=== PATIENT | male | born 1965 | race Caucasian/White ===

== ENCOUNTER → 2019-02-12 | Outpatient (CLI) | payer BC ==
--- NOTE | 2019-02-12 13:53 | CT ---
EXAMINATION TYPE: CT urogram wo/w con DATE OF EXAM: 02/12/2019 COMPARISON: None HISTORY: microscopic hematuria CT DLP: 2682 mGycm, Automated Exposure Control for Dose Reduction was Utilized. CONTRAST: CT scan of the abdomen and pelvis is performed with oral and without and with IV Contrast, patient in jected with 100 mL of Isovue 300. Three-D reformatted images of the collecting systems and urinary bl adder were performed at a separate workstation and submitted for interpretation. FINDINGS: LUNG BASES: No significant abnormality is appreciated. LIVER/GB: Hepatic parenchyma is diffusely hypoattenuated in comparison to that of the spleen, most commonly seen in hepatic steatosis. This finding limits evaluation for hepatic masses. No gross evide nce of hepatic mass is seen. No intrahepatic biliary ductal dilatation. No cholelithiasis. PANCREAS: No significant abnormality is seen. SPLEEN: No significant abnormality is seen. ADRENALS: No significant abnormality is seen. KIDNEYS: The unenhanced images demonstrate no evidence of nephrolithiasis. There is an exophytic 1 cm medial left upper pole renal cyst and too small to accurately characterize exophytic anterior 6 mm r ight renal lesion that is also likely sales representative canvas products of a cyst. No hydronephrosis of either kidney. N o filling defect within the urinary bladder is seen although only partially filled with contrast. No uroepithelial thickening. No ureteral obstruction or mass is evident. BOWEL: Scattered colonic diverticula are present without pericolonic fat stranding. Moderate amount r etained colonic debris is noted. No dilated large or small bowel. PROSTATE/SEMINAL VESICLES: No gross abnormality seen. Left inguinal ring is fat filled and patulous. LYMPH NODES: No greater than 1cm abdominal or pelvic lymph nodes are appreciated. OSSEOUS STRUCTURES: Osseous cystic change of the left femoral head is likely degenerative. Minimal de generative change of the spine. IMPRESSION: No nephrolithiasis, hydronephrosis, suspicious solid renal mass, uroepithelial thickening, ureteral s tricture, ureteral filling defect, or urinary bladder filling defect. There is a simple appearing damien ign left renal cyst in right renal lesion that is too small to accurately characterize but suspected to represent an additional benign cyst.
== END | disposition home or self-care (01) ==
LOC: RADCTMAIN 08:06
PROVIDERS: ATTEND Urology
DX: N28.1 Cyst of kidney, acquired (principal); N28.9 Disorder of kidney and ureter, unspecified; Z88.8 Allergy status to other drugs, medicaments and biological substances
CPT/HCPCS: 74178; 74400; Q9967

== ENCOUNTER 2019-09-30 21:25 | Observation (INO) | payer BC ==
--- NOTE | 2019-09-30 22:07 | ED ---
Arrhythmia/Palpitations HPI - General Chief Complaint: Arrhythmia/Palpitations Stated Complaint: Palpitations/CP Time Seen by Provider: 09/30/19 21:37 Source: patient Mode of arrival: ambulatory Limitations: no limitations - History of Present Illness Initial Comments: Patient is a 54-year-old male with history of type 2 diabetes is presenting to emergency Department with chief complaint of chest pain. Patient reports he has been having chest politicians for about 10 days when he feels his heart is "fluttering". Patient reports about a week ago he was evaluated by Dr. Fisher and had an EKG performed. Patient reports he was also placed on a Holter monitor for 24 hours. Patient reports over the same. He has been dealing with hypotension and Dr. Fisher head him avoid any stimulants. Patient is not currently on any antihypertensive medication. Patient reports occurred chest pain began about 2 hours prior to ED arrival. Patient reports a midsternal pain that radiated to the left shoulder and the jaw. Currently patient denies any chest pain but does report chest heaviness that seems to be exacerbated with full aspiration. Patient does report mild shortness of breath. Patient reports he is a social smoker. Patient does have family history of early cardiac disease. Patient does report lightheadedness. Patient did report diaphoresis at the onset of his chest pain but has not resolved. - Related Data Home Medications Medication Instructions Recorded Confirmed Atorvastatin [Lipitor] 20 mg PO HS 03/17/15 09/30/19 Aspirin EC [Ecotrin Low Dose] 162 mg PO ONCE PRN 09/30/19 09/30/19 Relive Vitmain Powder 1 scoop PO DAILY 09/30/19 09/30/19 Zolpidem Tartrate [Ambien Cr] 6.25 mg PO HS 09/30/19 09/30/19 Allergies Allergy/AdvReac Type Severity Reaction Status Date / Time hylan G-F 20 [From [employer]] AdvReac joint pain Verified 09/30/19 22:27 and swelling Review of Systems ROS Statement: Those systems with pertinent positive or pertinent negative responses have been documented in the HPI. ROS Other: All systems not noted in ROS Statement are negative. Past Medical History Past Medical History: Cancer, Hearing Disorder / Deafness, Hyperlipidemia, Hypertension, Osteoarthritis (OA), Pneumonia, Skin Disorder, Sleep Apnea/CPAP/BI PAP Additional Past Medical History / Comment(s): HTN RESOLVED WITH WT LOSS, HX OF SLEEP APNEA-STATES NO PROBLEM NOW, HX OF SQUAMOUS CELL CA EAR & PRECANCEROUS LESION ON FACE., ARTHRITIS IN KNEES, HIPS AND HANDS., BACK PAIN (SEE'S CHIROPRACTOR PRN). , RIGHT INGUINAL HERNIA. , STATES PAIN AT LEFT GROIN (HX OF LEFT INGUINAL HERNIA SURGERY), TINNITUS, 40% HEARING LOSS LEFT EAR. History of Any Multi-Drug Resistant Organisms: None Reported Past Surgical History: Hernia Repair, Orthopedic Surgery Additional Past Surgical History / Comment(s): RT KNEE ARTHROSCOPY,FATTY TUMOR REMOVED ABDOMINAL WALL, LEFT INGUINAL HERNIA REPAIR(1988). Past Anesthesia/Blood Transfusion Reactions: No Reported Reaction Past Psychological History: No Psychological Hx Reported Smoking Status: Former smoker Past Alcohol Use History: Occasional Past Drug Use History: None Reported - Past Family History Father Family Medical History: Diabetes Mellitus, Hyperlipidemia, Hypertension Mother Family Medical History: Cancer, CVA/TIA, Diabetes Mellitus General Exam Limitations: no limitations General appearance: alert, in no apparent distress, obese Head exam: Present: atraumatic, normocephalic, normal inspection Eye exam: Present: normal appearance, PERRL, EOMI Pupils: Present: normal accommodation ENT exam: Present: normal exam, mucous membranes moist Neck exam: Present: normal inspection Respiratory exam: Present: normal lung sounds bilaterally Cardiovascular Exam: Present: regular rate, normal rhythm, normal heart sounds Extremities exam: Present: normal inspection, full ROM Back exam: Present: normal inspection, full ROM Neurological exam: Present: alert, oriented X3 Psychiatric exam: Present: normal affect, normal mood Skin exam: Present: warm, intact, normal color Course Vital Signs 09/30/19 09/30/19 21:27 23:45 Temperature 98.1 F Pulse Rate 68 57 L Respiratory 16 18 Rate Blood Pressure 150/90 106/68 O2 Sat by Pulse 99 98 Oximetry EKG Findings - EKG Comments: EKG Findings:: Sinus bradycardia, no ST changes. Matriculate 55, AR interval 144, QRS duration 100, QT/QTC 404/296. Medical Decision Making - Medical Decision Making Patient is a 54-year-old male with a history of type 2 diabetes presenting to emergency Department with a chief complaint of chest pain. The pain occurred 2 hours prior to ED arrival with radiation to the left side, however patient currently denies any pain in only is complaining of some chest heaviness that appears to be exacerbated with inspiration. Chest x-ray is unremarkable. EKG shows sinus bradycardia. Patient alert he took 325 of aspirin today so none will be given currently. Initial troponins are negative. Rest of laboratory work is unremarkable. Patient has a heart score of 4. Patient will be admitted for serial troponins. Case discussed with physician. Admitting physician is . Cardiology consulted. - Lab Data Result diagrams: 09/30/19 22:10 09/30/19 22:10 Lab Results 09/30/19 09/30/19 09/30/19 Range/Units 22:10 22:10 22:10 WBC 9.9 (3.8-10.6) k/uL RBC 5.04 (4.30-5.90) m/uL Hgb 15.1 (13.0-17.5) gm/dL Hct 42.6 (39.0-53.0) % MCV 84.5 (80.0-100.0) fL MCH 30.0 (25.0-35.0) pg MCHC 35.5 (31.0-37.0) g/dL RDW 12.7 (11.5-15.5) % Plt Count 171 (150-450) k/uL Neutrophils % 61 % Lymphocytes % 33 % Monocytes % 5 % Eosinophils % 0 % Basophils % 0 % Neutrophils # 6.1 (1.3-7.7) k/uL Lymphocytes # 3.3 (1.0-4.8) k/uL Monocytes # 0.5 (0-1.0) k/uL Eosinophils # 0.0 (0-0.7) k/uL Basophils # 0.0 (0-0.2) k/uL PT 10.5 (9.0-12.0) sec INR 1.0 (<1.2) APTT 22.6 (22.0-30.0) sec Sodium 136 L (137-145) mmol/L Potassium 3.7 (3.5-5.1) mmol/L Chloride 102 (98-107) mmol/L Carbon Dioxide 23 (22-30) mmol/L Anion Gap 11 mmol/L BUN 21 H (9-20) mg/dL Creatinine 0.90 (0.66-1.25) mg/dL Est GFR (CKD-EPI)AfAm >90 (>60 ml/min/1.73 sqM) Est GFR (CKD-EPI)NonAf >90 (>60 ml/min/1.73 sqM) Glucose 109 H (74-99) mg/dL Calcium 9.8 (8.4-10.2) mg/dL Magnesium 1.9 (1.6-2.3) mg/dL Total Bilirubin 0.9 (0.2-1.3) mg/dL AST 31 (17-59) U/L ALT 25 (21-72) U/L Alkaline Phosphatase 65 (38-126) U/L Troponin I (0.000-0.034) ng/mL Total Protein 7.3 (6.3-8.2) g/dL Albumin 4.6 (3.5-5.0) g/dL 09/30/19 Range/Units 22:10 WBC (3.8-10.6) k/uL RBC (4.30-5.90) m/uL Hgb (13.0-17.5) gm/dL Hct (39.0-53.0) % MCV (80.0-100.0) fL MCH (25.0-35.0) pg MCHC (31.0-37.0) g/dL RDW (11.5-15.5) % Plt Count (150-450) k/uL Neutrophils % % Lymphocytes % % Monocytes % % Eosinophils % % Basophils % % Neutrophils # (1.3-7.7) k/uL Lymphocytes # (1.0-4.8) k/uL Monocytes # (0-1.0) k/uL Eosinophils # (0-0.7) k/uL Basophils # (0-0.2) k/uL PT (9.0-12.0) sec INR (<1.2) APTT (22.0-30.0) sec Sodium (137-145) mmol/L Potassium (3.5-5.1) mmol/L Chloride (98-107) mmol/L Carbon Dioxide (22-30) mmol/L Anion Gap mmol/L BUN (9-20) mg/dL Creatinine (0.66-1.25) mg/dL Est GFR (CKD-EPI)AfAm (>60 ml/min/1.73 sqM) Est GFR (CKD-EPI)NonAf (>60 ml/min/1.73 sqM) Glucose (74-99) mg/dL Calcium (8.4-10.2) mg/dL Magnesium (1.6-2.3) mg/dL Total Bilirubin (0.2-1.3) mg/dL AST (17-59) U/L ALT (21-72) U/L Alkaline Phosphatase (38-126) U/L Troponin I <0.012 (0.000-0.034) ng/mL Total Protein (6.3-8.2) g/dL Albumin (3.5-5.0) g/dL Disposition Clinical Impression: Chest pain Disposition: ADMITTED IP TO THIS HOSP Condition: Stable Instructions (If sedation given, give patient instructions): Heart Palpitations (ED) Additional Instructions: Patient will be admitted Is patient prescribed a controlled substance at d/c from ED?: No Referrals: Truman Anthony DO [Primary Care Provider] - 1-2 days Time of Disposition: 23:47
[2019-09-30 22:22] LABS: Basophils % (A) 0 %; Eosinophils % (A) 0 %; HCT 42.6 % (39.0-53.0); HGB 15.1 gm/dL (13.0-17.5); Lymphocytes # (A) 3.3 k/uL (1.0-4.8); Lymphocytes % (A) 33 %; MCHC 35.5 g/dL (31.0-37.0); MCV 84.5 fL (80.0-100.0); Mean Platelet Volume 5.9; Monocytes # (A) 0.5 k/uL (0-1.0); Monocytes % (A) 5 %; Neutrophils # (A) 6.1 k/uL (1.3-7.7); Neutrophils % (A) 61 %; Platelet Count 171 k/uL (150-450); RBC 5.04 m/uL (4.30-5.90); RDW 12.7 % (11.5-15.5); WBC 9.9 k/uL (3.8-10.6)
[2019-09-30 22:30] LABS: Partial Thromboplastin Time 22.6 sec (22.0-30.0); Prothrombin Time 10.5 sec (9.0-12.0)
[2019-09-30 22:41] LABS: ALT 25 U/L (21-72); AST 31 U/L (17-59); African American GFR (CKD) >90 (>60 ml/min/1.73 sqM); Albumin 4.6 g/dL (3.5-5.0); Alkaline Phosphatase 65 U/L (38-126); Anion Gap 11 mmol/L; Blood Urea Nitrogen 21 mg/dL (9-20); Calcium 9.8 mg/dL (8.4-10.2); Carbon Dioxide 23 mmol/L (22-30); Chloride 102 mmol/L (98-107); Glucose 109 mg/dL (74-99); Magnesium 1.9 mg/dL (1.6-2.3); Non-African American GFR(CKD) >90 (>60 ml/min/1.73 sqM); Potassium 3.7 mmol/L (3.5-5.1); Sodium 136 mmol/L (137-145); Total Bilirubin 0.9 mg/dL (0.2-1.3); Total Protein 7.3 g/dL (6.3-8.2)
--- NOTE | 2019-09-30 22:43 | XR ---
EXAMINATION TYPE: XR chest 2V DATE OF EXAM: 09/30/2019 COMPARISON: NONE HISTORY: Chest pain TECHNIQUE: Frontal and lateral views of the chest are obtained. FINDINGS: Heart and mediastinum are normal. Lungs are clear. Diaphragm is normal. Bony thorax appear s normal. IMPRESSION: Normal chest
[2019-09-30] MEDS ORDERED: ALPRAZolam 0.25 MG TAB PO PRN (23:41)
[2019-09-30] MEDS ORDERED: NITROGLYCERIN SL TABS 0.4 MG TAB SUBLINGUAL PRN (23:41)
[2019-10-01] MEDS ORDERED: ZOLPIDEM 5 MG TAB PO PRN
[2019-10-01] MEDS ORDERED: TEMAZEPAM 15 MG CAP PO PRN (00:38)
[2019-10-01] MEDS ORDERED: HYDROcodone/APAP 5-325MG 1 EACH TAB PO PRN (00:38)
[2019-10-01] MEDS ORDERED: HYDROmorphone 0.5 MG/0.5 ML SYRINGE IVP PRN (01:00)
[2019-10-01] MEDS ORDERED: ZOLPIDEM 5 MG TAB PO SCH (01:00)
[2019-10-01 03:55] LABS: Cholesterol 156 mg/dL (<200); HDL Cholesterol 41 mg/dL (40-60); LDL Cholesterol,Calculated 94 mg/dL (0-99); Triglycerides 103 mg/dL (<150)
[2019-10-01 05:46] VITALS: BMI 33.9
[2019-10-01] MEDS ORDERED: PANTOPRAZOLE 40 MG TABLET PO SCH (07:30)
[2019-10-01] MEDS ORDERED: DOBUTamine DRIP for NUC MED 500 MG in DEXTROSE/WATER 1 250ML.BAG IV ONE (08:11)
[2019-10-01] MEDS ORDERED: ASPIRIN 325 MG TAB PO SCH (09:00)
[2019-10-01 10:22] VITALS: RESP 16
--- NOTE | 2019-10-01 11:38 | CONS ---
CONSULTATION . CHIEF COMPLAINT: Chest pain. HISTORY OF PRESENT ILLNESS: Mr. Wiggins is a 54-year-old gentleman with history of dyslipidemia and prior episodes of palpitations, atypical chest discomfort and elevated blood pressures, comes to hospital complaining of palpitations. He checked his blood pressure at home and over a period of 1 week gradually the blood pressure had gone up. Due to this, he came in and is admitted to hospital. His EKG does not reveal acute ischemic changes and cardiac enzymes have been negative. At the time of my evaluation, he is pain free, hemodynamically stable and the blood pressures have been normal. An the patient has had episodes of anxiety and elevated blood pressures and had been evaluated in our office. The patient had a negative Lexiscan in January of 2019. PAST MEDICAL HISTORY: Significant for dyslipidemia. CURRENT MEDICATIONS: Include aspirin, Lipitor and Ambien. ALLERGIES: There are no known drug allergies. FAMILY HISTORY: Negative for premature coronary artery disease. SOCIAL HISTORY: Negative for current smoking, EtOH abuse, or drug abuse. REVIEW OF SYSTEMS: HEENT is unremarkable. Cardiac as described above. Respiratory as described above. GI negative. GENITOURINARY negative. ALLERGY none. SKIN negative. MUSCULOSKELETAL significant for arthritis. PSYCHOSOCIAL negative. ENDOCRINE negative. DERM negative. CONSTITUTIONAL negative. ONCOLOGICAL negative. Rest of the system review is not relevant. PHYSICAL EXAM: He is comfortable at rest. Vital signs are stable. There is no jugular venous distention. Carotid upstroke is normal. There is no bruit. Chest exam reveals good air entry bilaterally. Heart exam reveals first and second heart sounds. No gallop. No murmur. No rub. Abdomen is soft, nontender. Exam of extremities did not reveal any edema. Peripheral pulses are felt. 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 LABS: Show a hemoglobin of 15.1, platelet count is 170. Potassium is 3.7 creatinine is 0.9. Two sets of troponins are negative. LDL cholesterol is 94. ASSESSMENT: 1. Palpitations. 2. Precordial chest pain, atypical. 3. Hypertension, probably related to anxiety. PLAN: I will obtain a dobutamine echo on him and if this is negative, he can be discharged home and outpatient followup arranged with Dr. Fisher, his primary house worker general. MMODL / IJN: [id number] /
[2019-10-01 12:38] VITALS: TEMP 98.2
--- NOTE | 2019-10-01 15:09 | ECHOS ---
STRESS ECHOCARDIOGRAM DATE OF SERVICE: Dobutamine stress echo. INDICATIONS: Chest pain. MEDICATIONS: BASELINE HEART RATE: 48 BASELINE BLOOD PRESSURE: 113/70 MAXIMUM HEART RATE: 141 MAXIMUM BLOOD PRESSURE: 195/63 85% MPHR: 139 100% MPHR: 164 METS: MAXIMUM STAGE REACHED: 5 TOTAL EXERCISE TIME: 12:30 RESULTS: Baseline EKG revealed normal sinus rhythm without significant ST changes. With dobutamine administration as per protocol, heart rate went up to 141 beats per minute which is 85% of predicted maximal. Patient did not have any significant symptoms. There was no angina or arrhythmia. By EKG criteria, this is unremarkable dobutamine stress test. Baseline echo images revealed normal wall motion, wall thickening of all segments. With dobutamine administration, there was progressive increase in contractility of all segments suggesting that there is no evidence of stress-induced ischemia on this study. This is a normal dobutamine stress echocardiogram. FINAL IMPRESSION: 1. Normal dobutamine stress test by EKG criteria. 2. Normal dobutamine stress echocardiogram. MMODL / IJN: [id number] /
[2019-10-01 16:28] VITALS: BP 112/75; PULSE 55
--- NOTE | 2019-10-01 16:57 | HP ---
HISTORY AND PHYSICAL This is a combination history and physical and discharge summary. HISTORY AND PHYSICAL/DISCHARGE SUMMARY: DATE OF SERVICE: 10/01/2019 CHIEF COMPLAINT: Chest pain. HISTORY OF PRESENT ILLNESS: This 54-year-old gentleman the past medical history of hypertension, hyperlipidemia, history of DJD, history of pneumonia, history of hernia repair being followed by Dr. Truman Anthony in the outpatient setting, was complaining of chest pain which is felt in the anterior part of the chest and radiating to the left arm and left shoulder. EKG did not show any acute changes. Cardiac enzymes are negative. The patient had negative stress test in January 2019. The patient was evaluated by Cardiology and the patient underwent a dobutamine stress echo which was negative and the patient was recommended to be discharged and follow up in the outpatient setting with Cardiology and primary physician. The sodium is 136. There is no history of radiation of pain elsewhere, no associated symptoms, aggravating or relieving factors at this time. PAST MEDICAL HISTORY: History of hearing defects, history of hypertension, hyperlipidemia, history of DJD, history of hernia repair. MEDICATIONS: Home medications are: 1. Ambien 6.25 mg q.h.s. 2. Vitamin powder 1 scoop daily. 3. Lipitor 20 mg q.h.s. 4. Ecotrin 160 mg p.o. once p.r.n. 5. Protonix 40 mg with breakfast. ALLERGIES: HYLAN SYNVISC. FAMILY HISTORY: History of CAD, diabetes, hypertension, hyperlipidemia. SOCIAL HISTORY: Previous history of smoking. Occasional alcohol intake. REVIEW OF SYSTEMS: ENT: No diminished hearing. No diminished vision. CARDIOVASCULAR as mentioned earlier. RESPIRATORY: As mentioned earlier. GI no nausea or vomiting. no dysuria. CENTRAL NERVOUS SYSTEM: No numbness or weakness. ALLERGY/IMMUNOLOGY: No asthma or hayfever. MUSCULOSKELETAL as mentioned earlier. HEMATOLOGY/ONCOLOGY: No history of anemia. ENDOCRINE: No history of diabetes or hypothyroidism. CONSTITUTIONAL: As mentioned earlier. DERMATOLOGY: Negative. RHEUMATOLOGY: Negative. PSYCHIATRY: As mentioned earlier. PHYSICAL EXAMINATION: Alert and oriented times three. Pulse 53, blood pressure 125/74, respiration 16, temperature 98.2, pulse ox 99% on room air. HEENT is conjunctivae normal. Oral mucosa moist. NECK is no jugular venous distention. No carotid bruit. No lymph node enlargement. Cardiovascular system: S1, S2. No S3, S4. RESPIRATION: Breath sounds diminished in the bases. No rhonchi. No crackles. ABDOMEN: Soft, nontender. No mass palpable. LEGS: No edema. No swelling. NERVOUS SYSTEM: Higher functions as mentioned earlier. Moves all four limbs. No focal motor or sensory deficits. LYMPHATICS: No lymph nodes palpable in the neck, axillae or groin. SKIN no ulcer, no rashes and no bleeding. JOINTS: No active deforming arthropathy. LABS: CBC within normal limits. Sodium 130. Potassium 3.7. Glucose 109. Lipid panel negative. ASSESSMENT: 1. Chest pain, possible gastroesophageal reflux disease. Negative stress test. 2. History of hypertension. 3. Hyperlipidemia. 4. History of degenerative joint disease. 5. History of pneumonia. 6. History of sleep apnea, on CPAP. 7. History of back pain, degenerative joint disease. 8. Remote history of nicotine dependence. RECOMMENDATIONS AND DISCUSSION: In this 54-year-old gentleman who presented with multiple medical issues, at this time, I would recommend the patient be discharged and follow up in the outpatient setting. As mentioned, stress is negative. I recommend short course of Protonix and continue to follow up in the outpatient setting with primary Dr. Anthony and as well as Cardiology. DISCHARGE ADVICE AND MEDICATIONS: 1. Discharge diet is cardiac diet. 2. Activity limited until followup. 3. Follow up with Dr. Anthony in 1-2 days. 4. Follow up with Cardiology as recommended. DISCHARGE MEDICATIONS: 1. Ambien 6.25 mg q.h.s. 2. Ecotrin 160 mg p.r.n. 3. Lipitor 20 mg q.h.s. 4. Multivitamins one p.o. daily. 5. Protonix 40 mg daily. MMODL / IJN: [id number] /
[2019-10-01] MEDS ORDERED: ATORVASTATIN 20 MG TAB PO SCH (21:00)
--- NOTE | 2019-10-02 08:43 | ECHOF ---
Referral Reason:lv function MEASUREMENTS -------- HEIGHT: 167.6 cm WEIGHT: 95.3 kg BP: 131/8 RVIDd: 3.5 cm (< 3.3) IVSd: 1.2 cm (0.6 - 1.1) LVIDd: 4.6 cm (3.9 - 5.3) LVPWd: 1.2 cm (0.6 - 1.1) IVSs: 1.8 cm LVIDs: 3.2 cm LVPWs: 1.9 cm LA Diam: 3.8 cm (2.7 - 3.8) LAESV Index (A-L): 27.61 ml/m Ao Diam: 3.5 cm (2.0 - 3.7) AV Cusp: 2.6 cm (1.5 - 2.6) MV EXCURSION: 20.824 mm (> 18.000) MV EF SLOPE: 278 mm/s (70 - 150) EPSS: 0.2 cm MV E Simon: 0.72 m/s MV DecT: 168 ms MV A Simon: 0.60 m/s MV E/A Ratio: 1.20 RAP: 5.00 mmHg RVSP: 28.21 mmHg TAPSE: 18.66 mm FINDINGS -------- Resting bradycardia (HR<60bpm). This was a technically good study. The left ventricular size is normal. There is borderline concentric left ventricular hypertrophy. Overall left ventricular systolic function is normal with, an EF between 60 - 65 %. The diastolic filling pattern is normal for the age of the patient 10.15. The right ventricle is mildly enlarged. Normal LA size by volume 22+/-6 ml/m2. The right atrium is normal in size. Interatrial and interventricular septum intact. The aortic valve is trileaflet and appears structurally normal. Mild mitral regurgitation is present. Mild tricuspid regurgitation present. Right ventricular systolic pressure is normal at < 35 mmHg. There is no pulmonic regurgitation present. The aortic root size is normal. Normal inferior vena cava with normal inspiratory collapse consistent with estimated right atrial pre ssure of 5 mmHg. The inferior vena cava is mildly dilated. There is no pericardial effusion. CONCLUSIONS -------- 1. Resting bradycardia (HR<60bpm). 2. This was a technically good study. 3. The left ventricular size is normal. 4. There is borderline concentric left ventricular hypertrophy. 5. Overall left ventricular systolic function is normal with, an EF between 60 - 65 %. 6. The diastolic filling pattern is normal for the age of the patient 10.15 7. The right ventricle is mildly enlarged. 8. Normal LA size by volume 22+/-6 ml/m2. 9. The right atrium is normal in size. 10. Interatrial and interventricular septum intact. 11. The aortic valve is trileaflet and appears structurally normal. 12. Mild mitral regurgitation is present. 13. Mild tricuspid regurgitation present. 14. Right ventricular systolic pressure is normal at < 35 mmHg. 15. There is no pulmonic regurgitation present. 16. The aortic root size is normal. 17. Normal inferior vena cava with normal inspiratory collapse consistent with estimated right atrial pressure of 5 mmHg. 18. The inferior vena cava is mildly dilated. 19. There is no pericardial effusion. [employer] OFFICER: Domitila Harris RDCS
== END 2019-10-01 17:01 | disposition home or self-care (01) ==
LOC: EC 21:25 → 1SOBS 23:31 → 3SCARD 10-01 05:07
PROVIDERS: ADMIT Hospitalist; ATTEND Hospitalist
DX: R07.89 Other chest pain (principal); R00.2 Palpitations; E78.5 Hyperlipidemia, unspecified; I10 Essential (primary) hypertension; E11.9 Type 2 diabetes mellitus without complications; R00.1 Bradycardia, unspecified; F41.9 Anxiety disorder, unspecified; H93.19 Tinnitus, unspecified ear; H91.92 Unspecified hearing loss, left ear; M17.0 Bilateral primary osteoarthritis of knee; M19.042 Primary osteoarthritis, left hand; M19.041 Primary osteoarthritis, right hand; M16.0 Bilateral primary osteoarthritis of hip; M54.9 Dorsalgia, unspecified; E66.9 Obesity, unspecified; Z68.33 Body mass index [BMI] 33.0-33.9, adult; G47.30 Sleep apnea, unspecified; Z99.89 Dependence on other enabling machines and devices; Z79.82 Long term (current) use of aspirin; Z79.899 Other long term (current) drug therapy; Z88.8 Allergy status to other drugs, medicaments and biological substances; Z85.828 Personal history of other malignant neoplasm of skin; Z87.01 Personal history of pneumonia (recurrent); Z83.3 Family history of diabetes mellitus; Z82.49 Family history of ischemic heart disease and other diseases of the circulatory system; Z82.3 Family history of stroke; Z83.49 Family history of other endocrine, nutritional and metabolic diseases
CPT/HCPCS: 93005 ×2; 99285; 36415; 93306; 93351; 80061; 80053; 84443; 83735; 84484 ×2; 85025; 85610; 85730; 71046; G0378 ×2; J1250

== ENCOUNTER → 2019-12-17 | Outpatient (CLI) | payer BC ==
--- NOTE | 2019-12-17 07:48 | US ---
EXAMINATION TYPE: US abdomen complete DATE OF EXAM: 12/17/2019 COMPARISON: CT CLINICAL HISTORY: R10.12 left upper quad pain, R10.13 epigastric valentina. Pt states bloating, ABD discomf ort x 2 months EXAM MEASUREMENTS: Liver Length: 17.0 cm Gallbladder Wall: 0.2 cm CBD: 0.5 cm Spleen: 12.2 cm Right Kidney: 9.7 x 5.5 x 5.1 cm Left Kidney: 10.2 x 6.0 x 5.5 cm Pancreas: wnl, tail obscured Liver: Difficult to penetrate, heterogeneous Gallbladder: wnl Evidence for sonographic Hayden's sign: No CBD: wnl Spleen: wnl Right Kidney: Cyst lower pole= 0.7 cm/ No evidence of hydro Left Kidney: wnl Upper IVC: wnl Abd Aorta: wnl The liver is heterogenous. The intrahepatic portion of the IVC and proximal abdominal aorta are withi n normal limits. There is no evidence of cholelithiasis. Common bile duct is unremarkable. The vis ualized portions of the pancreas are homogenous. The spleen is unremarkable. Kidneys are symmetric and free of hydronephrosis. 7 mm cyst lower pole right kidney. IMPRESSION: 1 probable hepatic steatosis. 2. Tiny cyst on right kidney.
== END | disposition home or self-care (01) ==
LOC: RADUSWWP 07:06
PROVIDERS: ATTEND Family Medicine
DX: N28.1 Cyst of kidney, acquired (principal)
CPT/HCPCS: 76700

== ENCOUNTER 2020-01-03 09:32 | Day surgery (SDC) | payer BC ==
[2020-01-01 13:33] VITALS: BMI 33.9
[~2020-01-03 09:32] MED LIST: LACTATED RINGERS 1,000 ML IV SCH; LIDOCAINE 1% 20 ML VIAL (10MG/ML) FOR IV START INTRADERMA PRN
[2020-01-03 09:46] VITALS: TEMP 97.5
[2020-01-03] MEDS ORDERED: LIDOCAINE 1% INJ 10MG/ML (20 ML MDV) ONE (09:59)
[2020-01-03] MEDS ORDERED: PROPOFOL 10 MG/ML 20 ML VIAL IV ONE (09:59)
--- NOTE | 2020-01-03 10:24 | P.PCN ---
Date of Procedure: 01/03/20 Procedure(s) Performed: BRIEF HISTORY: Patient is a 54-year-old pleasant male scheduled for an elective colonoscopy as a part of evaluation of severe abdominal pain for the last 2 months duration. He denies any significant change in his bowel habits. Denies any rectal bleeding. PROCEDURE PERFORMED: Colonoscopy. PREOPERATIVE DIAGNOSIS: Left-sided abdominal pain. IV sedation per Anesthesia. PROCEDURE: After informed consent was obtained, the patient, was brought into the endoscopy unit. IV sedation was administered by Anesthesia under continuous monitoring. Digital rectal examination was normal. Initially the Olympus CF-160 flexible video colonoscope was then inserted in the rectum, gradually advanced into the cecum without any difficulty. Careful examination was performed as the scope was gradually being withdrawn. Ileocecal valve and the appendiceal orifice were visualized and appeared normal. Prep was excellent. Mucosa of the cecum, ascending colon, transverse colon, descending colon, sigmoid colon, and rectum appeared normal. Scattered sigmoid diverticulosis seen. Retroflexion was performed in the rectum and no lesions were seen. The patient tolerated the procedure well. IMPRESSION: Normal-appearing colon from rectum to cecum with no evidence of colorectal neoplasia Scattered sigmoid diverticulosis . RECOMMENDATIONS: Findings of this examination were discussed with the patient as well as his family. He will continue with a high-fiber diet and take fiber supplements as needed. He was advised to have a repeat screening colonoscopy in 10 years..
[2020-01-03 10:58] VITALS: BP 122/79; PULSE 54; RESP 18
== END 2020-01-03 11:29 | disposition home or self-care (01) ==
LOC: ORWHC2ENDO 09:32
PROVIDERS: ATTEND Internal Medicine Gastroenterology
DX: R10.12 Left upper quadrant pain (principal); K57.30 Diverticulosis of large intestine without perforation or abscess without bleeding; I10 Essential (primary) hypertension; E78.5 Hyperlipidemia, unspecified; G47.33 Obstructive sleep apnea (adult) (pediatric); F41.9 Anxiety disorder, unspecified; Z88.8 Allergy status to other drugs, medicaments and biological substances; Z79.899 Other long term (current) drug therapy; Z98.890 Other specified postprocedural states
CPT/HCPCS: 45378; J2001; J2704

== ENCOUNTER → 2021-02-23 | Outpatient (CLI) | payer BC ==
--- NOTE | 2021-02-23 15:40 | CT ---
EXAMINATION TYPE: CT neck chest w con DATE OF EXAM: 02/23/2021 COMPARISON: None HISTORY: Lt supraclavicular swelling, pain posterior neck-soft spot CT DLP: 1089.5 mGycm CONTRAST: CT scan of the neck is performed with IV Contrast, patient injected with 100 mL of Isovue 300. Contrast enhanced CT of the neck was performed from the skull base through the lung apices. Marker was placed at the site of clinical concern left supraclavicular region which corresponds to a 4.4 mm nonspecific nodular density which may reflect a small lymph node. AIRWAY: The supraglottic, glottic, and subglottic portions of the airway appear patent and free of mass. SALIVARY GLANDS: The submandibular and parotid glands are free of mass or inflammatory process. THYROID GLAND: No nodules or masses seen. LYMPH NODES: No adenopathy seen greater than 1cm. LUNG APICES: No nodule or mass is seen. OTHER: Vascular structures are patent. No significant degenerative change of the cervical spine. N o abscess seen. IMPRESSION: Marker was placed at the site of clinical concern left supraclavicular region which corresponds to a 4.4 mm nonspecific nodular density which may reflect a small lymph node. EXAMINATION TYPE: CT neck chest w con DATE OF EXAM: 02/23/2021 COMPARISON: None HISTORY: Lt supraclavicular swelling, pain posterior neck-soft spot CT DLP: 1089.5 mGycm Automated exposure control for dose reduction was used. CONTRAST: CT scan of the chest is performed with IV Contrast, patient injected with 100 mL of Isovue 300. FINDINGS: LUNGS: 5 mm nodular density right upper lobe. No additional pulmonary nodules are seen. No pulmonary mass. No infiltrate atelectasis or pleural effusion. MEDIASTINUM: There are no greater than 1 cm hilar or mediastinal lymph nodes. No pericardial effusi on is seen. Thoracic aorta is of normal caliber. The heart is not enlarged. UPPER ABDOMEN: No significant abnormality appreciated. OTHER: No additional significant abnormality is seen. IMPRESSION: Nonspecific tiny pulmonary nodule right upper lobe. Consider follow-up study in 6 months.
== END | disposition home or self-care (01) ==
LOC: RADCTMAIN 14:19
PROVIDERS: ATTEND Family Medicine
DX: R59.0 Localized enlarged lymph nodes (principal); R91.1 Solitary pulmonary nodule
CPT/HCPCS: 70491; 71260; Q9967

== ENCOUNTER → 2021-09-09 | Outpatient (CLI) | payer BC ==
--- NOTE | 2021-09-10 08:46 | CT ---
EXAMINATION TYPE: CT chest wo con DATE OF EXAM: 09/09/2021 COMPARISON: CT chest 02/23/2021 HISTORY: Lung nodule/abnormal findings, 6 mo f/u CT DLP: 533 mGycm. Automated Exposure Control for Dose Reduction was Utilized. TECHNIQUE: CT scan of the thorax is performed without IV contrast. FINDINGS: LUNGS: The lungs are grossly clear, there is no concerning parenchymal mass or nodule identified. Pr eviously described nodule is associated with the fissure on the right and is benign. There is no pleu ral effusion or pneumothorax seen. The tracheobronchial tree is patent. MEDIASTINUM: Lack of IV contrast is noted to limit evaluation for mediastinal and especially hilar ad enopathy. There are no definitive greater than 1 cm hilar or mediastinal lymph nodes. No cardiomega ly or pericardial effusion is seen. There are coronary calcifications present. OTHER: Thoracic spine is stable in appearance, wedge compression deformities are noted, there is mult ilevel spondylosis, loss of disc height at intervertebral levels, bone mineralization is maintained. Cortical cyst at the upper pole the left kidney is again noted. Liver shows low attenuation possibly due to hepatic steatosis.. IMPRESSION: Benign pulmonary nodule. Hepatic steatosis. Coronary artery disease.
== END | disposition home or self-care (01) ==
LOC: RADCTMAIN 14:17
PROVIDERS: ATTEND Family Medicine
DX: R91.1 Solitary pulmonary nodule (principal); I25.10 Atherosclerotic heart disease of native coronary artery without angina pectoris; K76.0 Fatty (change of) liver, not elsewhere classified
CPT/HCPCS: 71250

== ENCOUNTER → 2024-03-08 | Outpatient (CLI) | payer OTHER, BC ==
--- NOTE | 2024-03-08 10:00 | XR ---
EXAMINATION TYPE: XR cervical spine comp DATE OF EXAM: 03/08/2024 COMPARISON: NONE HISTORY: Pain TECHNIQUE: Four views are submitted. FINDINGS: The odontoid is intact. There are no compression deformities. The prevertebral soft tissue structur es are within normal limits. Reversal of normal cervical lordosis. There is moderate to severe degene rative disc disease C5-6 and C6-C7. There is foraminal encroachment at these levels. Vascular calcifi cations soft tissue neck. IMPRESSION: 1. Reversal of the normal cervical lordosis with moderate to severe degenerative disc disease C5-6 an d C6-C7 with foraminal encroachment suspected. Recommend MRI..
--- NOTE | 2024-03-08 10:02 | XR ---
EXAM TYPE: LUMBAR SPINE X RAY SERIES COMPARISON: NONE HISTORY: Pain TECHNIQUE: 4 views are submitted. FINDINGS: Alignment is anatomic. The pedicles are intact. The transverse processes are intact. There is mode rate to severe degenerative disc disease L4-5 and L5-S1. Grade 1 anterolisthesis both levels with fac et arthropathy. Diffuse osteopenia. There is SI joint arthropathy. IMPRESSION: 1. Moderate to severe degenerative disc disease L4-5 and L5-S1. 2. Grade 1 anterolisthesis L4-5 and L5-S1. Suspect foraminal encroachment at both levels.
== END | disposition home or self-care (01) ==
LOC: RADXRYALE 09:14
PROVIDERS: ATTEND Physician Assistant
DX: M51.37 Other intervertebral disc degeneration, lumbosacral region (principal); M43.17 Spondylolisthesis, lumbosacral region; V89.2XXA Person injured in unspecified motor-vehicle accident, traffic, initial encounter
CPT/HCPCS: 72050; 72110